=== PATIENT | male | born 1945 | race Caucasian/White ===

== ENCOUNTER → 2018-01-04 07:49 | Outpatient (CLI) | payer MEDICARE, SELFPAY ==
[2018-01-04 09:27] LABS: AST(SGOT) 29 U/L (15-37); Alanine Aminotransfer ALT/SGPT 17 U/L (16-61); Albumin, Serum 3.8 g/dL (3.2-5.0); Alkaline Phosphatase 43 U/L (45-117); Bilirubin, Direct 0.18 mg/dL (0.00-0.30); Cholesterol 173 mg/dL (200); Globulin 4.1 g/dL (2.2-4.2); High Density Lipoprotein 40 mg/dL; Protein, Total 7.9 g/dL (6.4-8.2); Triglycerides 141 mg/dL; Very Low Density Lipoprotein 28 mg/dL (5-40)
== END ==
PROVIDERS: Visit Provider Physician Assistant Medical
DX: E78.5 Hyperlipidemia, unspecified (principal); I25.10 Atherosclerotic heart disease of native coronary artery without angina pectoris; I25.5 Ischemic cardiomyopathy; I10 Essential (primary) hypertension
CPT/HCPCS: 36415; 80061; 80076

== ENCOUNTER 2018-04-25 06:27 | Emergency (ER) | payer MEDICARE, SELFPAY ==
[2018-04-25 06:28] VITALS: BP 160/82; PULSE 81; RESP 16; TEMP 36.7; O2SAT 98; BMI 28.0
--- NOTE | 2018-04-25 06:42 | EKG12_ITS ---
Test Reason : ILLNESS Blood Pressure : / mmHG Vent. Rate : 073 BPM Atrial Rate : 062 BPM P-R Int : 000 ms QRS Dur : 124 ms QT Int : 464 ms P-R-T Axes : 000 031 215 degrees QTc Int : 511 ms Atrial fibrillation with premature ventricular or aberrantly conducted complexes Non-specific intra-ventricular conduction delay ST & T wave abnormality, consider inferior ischemia ST & T wave abnormality, consider anterolateral ischemia Abnormal ECG Confirmed by IDA KEEN ([id number]), map editor JOEY MENA ([id number]) on 04/30/2018 2:33:12 PM Referred By: OLU Confirmed By:IDA KEEN
[2018-04-25] MEDS: 0.9% Normal Saline 1,000 ML 150 ML IV (06:47)
--- NOTE | 2018-04-25 06:51 | ED.DCSUM_ITS ---
- ER Visit Summary Date of Service: 04/25/18 Chief Complaint: [Back pain and leg pain] History of Present Illness: The patient is a 72 M [presents the emergency department with complaint of pain in his low back and into his legs. Patient complains of numbness, decreased sensation and weakness of his legs especially his left leg. Patient states he woke up at 5 AM to use the restroom and after urinating went back into bed. Patient had numbness and tingling to his left leg. Patient got up and went sit on the couch when he noticed that his legs felt like they were going to give out and he had sensation like his left leg had fallen asleep. Patient no longer able to walk or move his left leg. He denies any chest pain or shortness of breath. Patient at that time was having severe pain in his low back as well.] Physical Examination: [HEENT-PERRLA, EOMI. Cranial nerves II through XII grossly intact. TMs clear. Mucous membranes moist. No adenopathy. Cardiovascular-regular rate and rhythm without murmur or ectopy Lungs-clear to auscultation, chest wall stable without crepitus or subcu emphysema Abdomen-normoactive bowel sounds, soft, nontender, no rebound or rigidity, no peritoneal signs. Back exam-no significant tenderness on palpation of his lumbar spine or thoracic spine. Negative straight leg raises. Patient has deep tendon reflexes that are diminished at the left patella and Achilles compared to the right side. Extremities-intact ?4, normal range of motion, normal pulses, atraumatic]. Patient unable to lift his left leg off the bed. Patient is able to lift the right leg up off the bed. Test Results: [CTA of the abdomen was ordered stat to rule out aortic dissection. EKG and labs ordered.] Emergency Department Course and Treatment: [Care of patient turned over to morning physician awaiting lab results and CT results.] Treatment Plan: [Pending] Disposition: [Pending] Impression: [Back pain Left leg weakness] This note was generated with [employer] dictation software. It may contain incorrect words, spelling, and punctuation that were not noted in review of the chart prior to signing ED Disposition - Plan for ED Patient: Chief Complaint: Back Referrals: Care Physician,No Primary [Primary Care Provider] -
[2018-04-25 07:00] LABS: Anion Gap 11 (5-15); BUN 36 mg/dL (7-18); Chloride 111 mmol/L (98-107); Creatinine, Serum 1.89 mg/dL (0.70-1.30); EST Glomerular Filtration Rate 37 mL/min (>60); Est Glom Filt Rate - Afr Amer 45 mL/min (>60); Estimated Creatinine Clearance 32.54 ml/min; Glucose 233 mg/dL (74-106); Potassium 4.2 mmol/L (3.5-5.1); Sodium Level 146 mmol/L (136-145)
[2018-04-25 07:01] LABS: Absolute Lymphocyte Count 3.34 X10^3/ul (0.83-4.51); Absolute Neutrophil Count 4.1 X10^3/uL (2.0-7.7); Basophil# 0.02 X10^3/uL; Basophil% 0.2 % (0-1); Eosinophil# 0.26 X10^3/uL; Eosinophils% 3.2 % (0-5); Lymphocyte # 3.34 X10^3/ul (4.0); Lymphocyte % 40.6 % (19-41); Mean Corp Hgb Conc 31.8 g/gl (32-36); Mean Corpuscular Hgb 28.7 pg (27.0-32.0); Mean Corpuscular Volume 90.3 fL (80-94); Mean Platelet Vol. 11.3 fl (6.2-12.0); Monocyte# 0.51 X10^3/uL; Monocyte% 6.2 % (0-10); Neutrophil # 4.09 X10^3/uL (2.7-7.7); Neutrophil % 49.7 % (47-70); Platelet Count 160 K/mm3 (150-450); RBC Distribution Width CV 14.3 % (11.6-14.6); RBC Distribution Width SD 46.5 fl (35.1-43.9); Red Blood Count 4.87 M/mm3 (4.6-6.2); White Blood Count 8.2 K/mm3 (4.4-11.0)
[2018-04-25 07:06] LABS: International Normalized Ratio 1.1; Prothrombin Time (Protime)PT. 14.6 SECONDS (11.7-14.9)
[2018-04-25 07:07] LABS: POSITIVE COUNT NO; POSITIVE DIFFERENTIAL NO; POSITIVE MORPHOLOGY NO; Partial Thromboplast Time 26.3 Seconds (24.1-36.2)
[2018-04-25] MEDS: 0.9% Normal Saline 1,000 ML 999 ML IV (07:23)
[2018-04-25 07:32] LABS: Lactic Acid 2.4 mmol/L (0.4-2.0)
[2018-04-25] MEDS: HYDROmorphone 1 MG/ML Syringe IV (07:38)
[2018-04-25] MEDS: Heparin Injection (Vial) 5,000 UNIT/ML VIAL 4000 UNIT IV (07:49)
[2018-04-25 08:04] VITALS: BP 160/84; PULSE 78; RESP 12; O2SAT 96
[2018-04-25 10:53] LABS: Reflex Lactate? Y
== END 2018-04-25 08:06 | disposition short-term general hospital (02) ==
PROVIDERS: Emergency Provider Emergency Medicine
DX: I74.09 Other arterial embolism and thrombosis of abdominal aorta (principal); I25.10 Atherosclerotic heart disease of native coronary artery without angina pectoris; I42.9 Cardiomyopathy, unspecified; I10 Essential (primary) hypertension; E78.00 Pure hypercholesterolemia, unspecified; Z95.1 Presence of aortocoronary bypass graft; Z79.82 Long term (current) use of aspirin; Z79.899 Other long term (current) drug therapy
CPT/HCPCS: 75635; 80048; 83605; 85025; 85610; 85730; 93005; 96361; 96365; 96375; 99285; J7030; Q9967; A4216

== ENCOUNTER 2018-05-28 22:08 | Emergency (ER) | payer MEDICARE, SELFPAY ==
[2018-05-28 22:09] VITALS: BP 108/64; PULSE 64; RESP 18; TEMP 36.7; O2SAT 99; BMI 24.5
--- NOTE | 2018-05-29 00:05 | ED.VISSUMM ---
- ER Visit Summary Date of Service: 05/29/18 Chief Complaint: Rectal bleeding History of Present Illness: The patient is a 72 M sudden rectal bleeding bright red blood this evening. States dripping down his leg. 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 He was sent to [facility]. Patient states during the same time was dealing with left-sided kidney stones, has lithotripsy and left ureteral stent. Replaced Luis catheter last Sunday due to the additional procedure. States blood has been in the Luis since then. No fevers. States he is been dealing with constipation, the days of gave himself a rectal suppository, states had pain during insertion at that time. States there was no bleeding. He has not inserted anything since then. Denies lightheaded symptoms. Physical Examination: General: Alert and oriented ?3, no acute distress HEENT: Normocephalic, atraumatic. Pale conjunctiva moist mucosa membranes Neck: supple, nontender. Cardiovascular: Regular rate and rhythm, no murmurs Respiratory: Normal breath sounds, symmetric, no distress Abdomen: Soft, nontender, nondistended Rectal: No hemorrhoids. However with evaluation of the sphincter, there was clot and oozing of blood dark red blood. Extremities: Nontender, no edema, pulses intact ?4 Neuro: no focal neurological deficits. Test Results: Hemoglobin 10.8. Creatinine 2.56. INR 3.7. PTT 45.8. Type and screen: A-. Emergency Department Course and Treatment: Patient's exam concerns for active bleeding posterior aspect. With his history more concerns of his recent rectal suppository placement. He states he had significant pain when he placed this. I did send for labs and type and screen. Fluid started. His last meal was 7:30 PM. He is kept n.p.o. I discussed with on-call surgeon Dr. Simon, on holding off on anoscope at this time. He states he was evaluated in the emergency department. Patient evaluated surgery in the emergency department. Evaluated concerns for a brisk bleed due to patient's coagulopathy and recent medical history felt he needs colorectal surgery involved and needs transfer to higher level of care. Call out to [facility] discussed with transfer line multiple times, colorectal surgery was made aware along with general surgery. They request ICU acceptance. Patient accepted by store leader Dr. Fairchild to the emergency department for evaluation. Hemoglobin 10.8 at 12:20 AM. INR 3.7. Blood pressure remained stable in the ED continue IV fluids. N.p.o. was maintained. He will be transferred to the emergency department. Treatment Plan: [] Disposition: Transfer to [facility] emergency department Impression: 1. Acute rectal bleed 2. Coagulopathy 3. Acute on chronic renal insufficiency 4. Recent aortic thrombectomy This note was generated with [employer] dictation software. It may contain incorrect words, spelling, and punctuation that were not noted in review of the chart prior to signing ED Disposition - Plan for ED Patient: Disposition: [facility] Chief Complaint: GI Bleed Diagnosis: Rectal bleed, Coagulopathy, Acute kidney injury Referrals: Care Physician,No Primary [Primary Care Provider] -
--- NOTE | 2018-05-29 00:08 | ED.DCSUM_ITS ---
- ER Visit Summary Date of Service: 05/29/18 Chief Complaint: Rectal bleeding History of Present Illness: The patient is a 72 M sudden rectal bleeding bright red blood this evening. States dripping down his leg. 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 He was sent to [facility]. Patient states during the same time was dealing with left-sided kidney stones, has lithotripsy and left ureteral stent. Replaced Luis catheter last Sunday due to the additional procedure. States blood has been in the Luis since then. No fevers. States he is been dealing with constipation, the days of gave himself a rectal suppository, states had pa in during insertion at that time. States there was no bleeding. He has not inserted anything since then. Denies lightheaded symptoms. Physical Examination: General: Alert and oriented ?3, no acute distress HEENT: Normocephalic, atraumatic. Pale conjunctiva moist mucosa membranes Neck: supple, nontender. Cardiovascular: Regular rate and rhythm, no murmurs Respiratory: Normal breath sounds, symmetric, no distress Abdomen: Soft, nontender, nondistended Rectal: No hemorrhoids. However with evaluation of the sphincter, there was clot and oozing of blood dark red blood. Extremities: Nontender, no edema, pulses intact ?4 Neuro: no focal neurological deficits. Test Results: Hemoglobin 10.8. Creatinine 2.56. INR 3.7. PTT 45.8. Type and screen: A-. Emergency Department Course and Treatment: Patient's exam concerns for active bleeding posterior aspect. With his history more concerns of his recent rectal suppository placement. He states he had significant pain when he placed this. I did send for labs and type and screen. Fluid started. His last meal was 7:30 PM. He is kept n.p.o. I discussed with on-call surgeon Dr. Simon, on holding off on anoscope at this time. He states he was evaluated in the emergency department. Patient evaluated surgery in the emergency department. Evaluated concerns for a brisk bleed due to patient's coagulopathy and recent medical history felt he needs colorectal surgery involved and needs transfer to higher level of care. Call out to [facility] discussed with transfer line multiple times, colorectal surgery was made aware along with general surgery. They request ICU acceptance. Patient accepted by fence erector supervisor Dr. Fairchild to the emergency department for evaluation. Hemoglobin 10.8 at 12:20 AM. INR 3.7. Blood pressure remained stable in the ED continue IV fluids. N.p.o. was maintained. He will be transferred to the emergency department. Treatment Plan: [] Disposition: Transfer to [facility] emergency department Impression: 1. Acute rectal bleed 2. Coagulopathy 3. Acute on chronic renal insufficiency 4. Recent aortic thrombectomy This note was generated with [employer] dictation software. It may contain incorrect words, spelling, and punctuation that were not noted in review of the chart prior to signing ED Disposition - Plan for ED Patient: Disposition: [facility] Chief Complaint: GI Bleed Diagnosis: Rectal bleed, Coagulopathy, Acute kidney injury Referrals: Care Physician,No Primary [Primary Care Provider] -
[2018-05-29 00:09] VITALS: BP 90/53; PULSE 87; RESP 16; O2SAT 99
[2018-05-29] MEDS: 0.9% Normal Saline 1,000 ML 150 ML IV ×2 (00:22→02:58)
[2018-05-29 00:32] LABS: Absolute Lymphocyte Count 1.72 X10^3/ul (0.83-4.51); Absolute Neutrophil Count 3.9 X10^3/uL (2.0-7.7); Basophil# 0.02 X10^3/uL; Basophil% 0.3 % (0-1); Eosinophil# 0.22 X10^3/uL; Eosinophils% 3.4 % (0-5); Hematocrit 34.5 % (40-54); Hemoglobin 10.8 g/dl (13.0-16.5); Lymphocyte # 1.72 X10^3/ul (4.0); Lymphocyte % 26.7 % (19-41); Mean Corp Hgb Conc 31.3 g/gl (32-36); Mean Corpuscular Hgb 28.1 pg (27.0-32.0); Mean Corpuscular Volume 89.6 fL (80-94); Monocyte% 9.3 % (0-10); Neutrophil # 3.88 X10^3/uL (2.7-7.7); Neutrophil % 60.1 % (47-70); Platelet Count 194 K/mm3 (150-450); RBC Distribution Width CV 14.1 % (11.6-14.6); RBC Distribution Width SD 46.3 fl (35.1-43.9); Red Blood Count 3.85 M/mm3 (4.6-6.2); White Blood Count 6.5 K/mm3 (4.4-11.0)
[2018-05-29 00:36] LABS: POSITIVE COUNT NO; POSITIVE DIFFERENTIAL NO; POSITIVE MORPHOLOGY NO
[2018-05-29 00:48] LABS: Partial Thromboplast Time 45.8 Seconds (24.1-36.2); Prothrombin Time (Protime)PT. 36.6 SECONDS (11.7-14.9)
[2018-05-29 00:49] VITALS: BP 100/63; BP 66/58; PULSE 79; PULSE 83; RESP 16; RESP 20; O2SAT 100; O2SAT 99
[2018-05-29 00:50] LABS: Anion Gap 7 (5-15); BUN 58 mg/dL (7-18); BUN/Creat Ratio 22.7 RATIO (10-20); Calcium,Total 9.2 mg/dL (8.5-10.1); Chloride 103 mmol/L (98-107); Creatinine, Serum 2.56 mg/dL (0.70-1.30); EST Glomerular Filtration Rate 26 mL/min (>60); Est Glom Filt Rate - Afr Amer 32 mL/min (>60); Estimated Creatinine Clearance 24.03 ml/min; Glucose 125 mg/dL (74-106); International Normalized Ratio 3.7; Potassium 4.7 mmol/L (3.5-5.1); Sodium Level 138 mmol/L (136-145)
--- NOTE | 2018-05-29 00:53 | ED.RN ---
AWARE OF PT'S CURRENT BLOOD PRESSURES AND DR. JOSEPH AT BEDSIDE. PT HAS TINSLEY CATHETER DRAINING DARK RED URINE.
--- NOTE | 2018-05-29 01:15 | PCM.CONS.GEN ---
Problem List (1) GI bleed Status: Acute Qualifiers: GI bleed type/associated pathology: anorectal hemorrhage Qualified Code(s): K62.5 - Hemorrhage of anus and rectum Reason for Consult Date of Consultation: 05/29/18 Reason for Consultation: GI bleeding History of Present Illness: The patient is a 72 year old M who began to have bright red bleeding this evening. The patient reports that he was recently admitted to [facility] and had bilateral groin incisions for a aortic thrombectomy. He was placed on Xarelto at that time. He also underwent ureteral stone removal with stent placement and an indwelling Luis catheter. The patient reports he has not had a bowel movement in several days. He is having bleeding from his rectum which is bright red and copious. The patient reports that he is having pain with passing gas and he did try to place a suppository a few days ago. The blood only started tonight however. The patient reports he is never had a colonoscopy. He is not having any abdominal pain or nausea or vomiting. Past Medical History Past Medical History (Chronic Problems): Chronic Problems (Last Reviewed 02/05/18 @ 13:20 by Kanchan Gilbert) Hyperlipidemia (Chronic) Hypertension (Chronic) CAD (coronary artery disease) (Chronic) Atherosclerosis of coronary artery of hoh heart without angina pectoris (Chronic) S/P CABG in 2006 within [facility] to LAD, SVG to right PDA, and SVG to ramus intermedius; Arteriosclerosis of arterial coronary artery bypass graft (Chronic) S/P CABG in 2006 within [facility] to LAD, SVG to right PDA, and SVG to ramus intermedius; Ischemic cardiomyopathy (Chronic) Paroxysmal ventricular tachycardia (Chronic) Chronic systolic (congestive) heart failure (Chronic) Aortocoronary bypass status (Chronic) 10/24/06 CABG X 3 [place] to LAD, SVG to Rt PDA, SVG to Ramus Intermedius; Encounter for long-term current use of high risk medication (Chronic) Cardiac murmur (Chronic) Mitral valve disorder (Chronic) Left carotid bruit (Chronic) Medical History: Medical History (Last Reviewed 02/05/18 @ 13:20 by Kanchan Gilbert) Hyperlipidemia (Chronic) E78.5 Hypertension (Chronic) I10 CAD (coronary artery disease) (Chronic) I25.10 Atherosclerosis of coronary artery of hoh heart without angina pectoris (Chronic) I25.10 S/P CABG in 2006 within [facility] to LAD, SVG to right PDA, and SVG to ramus intermedius; Arteriosclerosis of arterial coronary artery bypass graft (Chronic) I25.810 S/P CABG in 2006 within [facility] to LAD, SVG to right PDA, and SVG to ramus intermedius; Ischemic cardiomyopathy (Chronic) I25.5 Paroxysmal ventricular tachycardia (Chronic) I47.2 Chronic systolic (congestive) heart failure (Chronic) I50.22 Encounter for long-term current use of high risk medication (Chronic) Z79.899 Cardiac murmur (Chronic) R01.1 Mitral valve disorder (Chronic) I05.9 Left carotid bruit (Chronic) R09.89 Dyspnea R06.00 Allergies cortisone Adverse Reaction (Severe, Verified 05/28/18 22:11) Facial swelling Home Medications: Ambulatory Orders Medication Instructions Recorded cholecalciferol (vitamin D3) 1,000 1,000 unit PO QDAY 02/01/18 unit tablet docusate sodium 100 mg capsule 100 mg PO .As needed cap 02/01/18 nitroglycerin 0.4 mg sublingual 0.4 mg SUBLINGUAL Q5M PRN 02/01/18 tablet carvedilol 25 mg tablet 25 mg PO BID #180 tab 02/05/18 fenofibrate micronized 200 mg 200 mg PO QDAY #90 cap 02/05/18 capsule furosemide 40 mg tablet 40 mg PO QDAY #90 tab 02/05/18 lisinopril 20 mg tablet 20 mg PO BID #180 tab 02/05/18 omega-3 fatty acids 1,000 mg 1,000 mg PO QDAY 02/05/18 capsule potassium chloride ER 20 mEq 20 meq PO QDAY #90 tab 02/05/18 tablet,extended release(part/cryst) rosuvastatin 40 mg tablet 40 mg PO QDAY #90 tab 02/05/18 Rivaroxaban [Xarelto] 20 mg PO DAILY 05/29/18 Tamsulosin HCl [Flomax] 0.4 mg PO DAILY 05/29/18 Surgical History: Surgical History (Last Reviewed 02/05/18 @ 13:26 by Kanchan Gilbert) Aortocoronary bypass status (Chronic) Z95.1 10/24/06 CABG X 3 [place] to LAD, SVG to Rt PDA, SVG to Ramus Intermedius; Surgical History: - - Ureteral stone removal and stent placement, aortic thrombectomy Smoking Status: Former smoker - *Family History Maternal Family History: Family History (Last Updated 02/05/18 @ 13:27 by Kanchan Gilbert) Father Myocardial infarction Heart disease Brother CAD (coronary artery disease) Brother Myocardial infarction Brother Heart disease Other Hypertension Review of Systems Constitutional: Denies: Anorexia, Fever HEENT: Denies: Difficulty Hearing Cardiovascular: Denies: Chest Pain Respiratory: Denies: Cough, Shortness of Breath Gastrointestinal: Reports: Constipation, Hematochezia. Denies: Abdominal Pain, Hematemesis, Nausea, Vomiting Genitourinary: Reports: - - Luis Musculoskeletal: Reports: - - Chronic left leg wound Skin: Denies: Jaundice Neurological: Denies: Balance problems Hematologic/ Lymphatic: Denies: Adenopathy Patient Problems: Active and Suspected Problems (Last Reviewed 02/05/18 @ 13:20 by Kanchan Gilbert) GI bleed (Acute) - Physical Exam General: Alert, Oriented x3 HEENT: Atraumatic Neck: No JVD Lungs: Normal air movement Cardiovascular: Regular rate, Regular Rhythm Abdomen: Soft, Non Tender, Non-Distended, - - On rectal exam the patient is having copious bright red blood per rectum. No signs of trauma on external rectal exam. No hemorrhoids. Extremities: No clubbing Skin: No rashes Musculoskeletal: No Tenderness to Palpation of Joints or Extremities, No Muscle Wasting, - - And has a left lower extremity calf wound Neurological: Cranial nerves II-XII grossly intact Psych/Mental Status: Normal Affect Vital Signs Temp Pulse Resp BP Pulse Ox 98.0 F 83 16 100/63 100 05/28/18 22:09 05/29/18 00:49 05/29/18 00:49 05/29/18 00:49 05/29/18 00:49 Oxygen Delivery Method Room Air Weight: 157 lb Body Mass Index (BMI) 24.5 Laboratory Tests Past 24 Hrs 05/29/18 05/29/18 05/29/18 00:20 00:20 00:20 WBC 6.5 RBC 3.85 L Hgb 10.8 L Hct 34.5 L MCV 89.6 MCH 28.1 MCHC 31.3 L RDW 14.1 RDW Differential 46.3 H Plt Count 194 MPV 10.0 Immature Gran % (Auto) 0.200 Neut % (Auto) 60.1 Lymph % (Auto) 26.7 Mills % (Auto) 9.3 Eos % (Auto) 3.4 Baso % (Auto) 0.3 Absolute Neuts (auto) 3.9 Absolute Lymphs (auto) 1.72 Total Counted Not Reportable PT 36.6 H INR 3.7 H* APTT 45.8 H Sodium 138 Potassium 4.7 Chloride 103 Carbon Dioxide 28.0 Anion Gap 7 BUN 58 H Creatinine 2.56 H Estim Creat Clear Calc 24.03 Est GFR (MDRD) Af Amer 32 L Est GFR (MDRD) Non-Af 26 L BUN/Creatinine Ratio 22.7 H Glucose 125 H Calcium 9.2 Blood Type Antibody Screen 05/29/18 00:20 WBC RBC Hgb Hct MCV MCH MCHC RDW RDW Differential Plt Count MPV Immature Gran % (Auto) Neut % (Auto) Lymph % (Auto) Mills % (Auto) Eos % (Auto) Baso % (Auto) Absolute Neuts (auto) Absolute Lymphs (auto) Total Counted PT INR APTT Sodium Potassium Chloride Carbon Dioxide Anion Gap BUN Creatinine Estim Creat Clear Calc Est GFR (MDRD) Af Amer Est GFR (MDRD) Non-Af BUN/Creatinine Ratio Glucose Calcium Blood Type Pending Antibody Screen Pending Assessment/Plan All Active Problems (Last Reviewed 02/05/18 @ 13:20 by Kanchan Gilbert) GI bleed (Acute) 72-year-old male with GI bleed 1. The patient is having copious bright red blood per rectum. The patient has an INR over 3 and is on Xarelto. I am unsure of the patient's surgical history and I am unsure if he is able to come off of his Xarelto. I would recommend transfer back to [facility] for management of his GI bleed as it is very brisk and probably beyond my scope. Patient needs a GI consult as well as possible colorectal surgery. Unsure if the bleed is diverticular in nature versus polyp versus trauma to the rectum from suppository placement. In any way the patient would likely need to come off of his blood thinners and may require transfusion. I recommend transfer back to [facility] as the patient has had all of his recent care in the last month there and all of his physicians are there as well. Sherwin Simon MD Pager: [facility] [address] [place] [address], [address] [place] [address] Office:
[2018-05-29 01:19] VITALS: BP 116/55; PULSE 80; RESP 16; O2SAT 100
--- NOTE | 2018-05-29 01:20 | CON.PCM_ITS ---
Problem List (1) GI bleed Status: Acute Qualifiers: GI bleed type/associated pathology: anorectal hemorrhage Qualified Code(s): K62.5 - Hemorrhage of anus and rectum Reason for Consult Date of Consultation: 05/29/18 Reason for Consultation: GI bleeding History of Present Illness: The patient is a 72 year old M who began to have bright red bleeding this evening. The patient reports that he was recently admitted to [facility] and had bilateral groin incisions for a aortic thrombectomy. He was placed on Xarelto at that time. He also underwent ureteral stone removal with stent placement and an indwelling Luis catheter. The patient reports he has not had a bowel movement in several days. He is having bleeding from his rectum which is bright red and copious. The patient reports that he is having pain with passing gas and he did try to place a suppository a few days ago. The blood only started tonight however. The patient reports he is never had a colonoscopy. He is not having any abdominal pain or nausea or vomiting. Past Medical History Past Medical History (Chronic Problems): Chronic Problems (Last Reviewed 02/05/18 @ 13:20 by Kanchan Gilbert) Hyperlipidemia (Chronic) Hypertension (Chronic) CAD (coronary artery disease) (Chronic) Atherosclerosis of coronary artery of [place] without angina pectoris (Chronic) S/P CABG in 2006 within [facility] to LAD, SVG to right PDA, and SVG to ramus intermedius; Arteriosclerosis of arterial coronary artery bypass graft (Chronic) S/P CABG in 2006 within [facility] to LAD, SVG to right PDA, and SVG to ramus intermedius; Ischemic cardiomyopathy (Chronic) Paroxysmal ventricular tachycardia (Chronic) Chronic systolic (congestive) heart failure (Chronic) Aortocoronary bypass status (Chronic) 10/24/06 CABG X 3 [facility] to LAD, SVG to Rt PDA, SVG to Ramus Intermedius; Encounter for long-term current use of high risk medication (Chronic) Cardiac murmur (Chronic) Mitral valve disorder (Chronic) Left carotid bruit (Chronic) Medical History: Medical History (Last Reviewed 02/05/18 @ 13:20 by Kanchan Gilbert) Hyperlipidemia (Chronic) E78.5 Hypertension (Chronic) I10 CAD (coronary artery disease) (Chronic) I25.10 Atherosclerosis of coronary artery of [place] without angina pectoris (Chronic) I25.10 S/P CABG in 2006 within [facility] to LAD, SVG to right PDA, and SVG to ramus intermedius; Arteriosclerosis of arterial coronary artery bypass graft (Chronic) I25.810 S/P CABG in 2006 within [facility] to LAD, SVG to right PDA, and SVG to ramus intermedius; Ischemic cardiomyopathy (Chronic) I25.5 Paroxysmal ventricular tachycardia (Chronic) I47.2 Chronic systolic (congestive) heart failure (Chronic) I50.22 Encounter for long-term current use of high risk medication (Chronic) Z79.899 Cardiac murmur (Chronic) R01.1 Mitral valve disorder (Chronic) I05.9 Left carotid bruit (Chronic) R09.89 Dyspnea R06.00 Allergies cortisone Adverse Reaction (Severe, Verified 05/28/18 22:11) Facial swelling Home Medications: Ambulatory Orders Medication Instructions Recorded cholecalciferol (vitamin D3) 1,000 1,000 unit PO QDAY 02/01/18 unit tablet docusate sodium 100 mg capsule 100 mg PO .As needed cap 02/01/18 nitroglycerin 0.4 mg sublingual 0.4 mg SUBLINGUAL Q5M PRN 02/01/18 tablet carvedilol 25 mg tablet 25 mg PO BID #180 tab 02/05/18 fenofibrate micronized 200 mg 200 mg PO QDAY #90 cap 02/05/18 capsule furosemide 40 mg tablet 40 mg PO QDAY #90 tab 02/05/18 lisinopril 20 mg tablet 20 mg PO BID #180 tab 02/05/18 omega-3 fatty acids 1,000 mg 1,000 mg PO QDAY 02/05/18 capsule potassium chloride ER 20 mEq 20 meq PO QDAY #90 tab 02/05/18 tablet,extended release(part/cryst) rosuvastatin 40 mg tablet 40 mg PO QDAY #90 tab 02/05/18 Rivaroxaban [Xarelto] 20 mg PO DAILY 05/29/18 Tamsulosin HCl [Flomax] 0.4 mg PO DAILY 05/29/18 Surgical History: Surgical History (Last Reviewed 02/05/18 @ 13:26 by Kanchan Gilbert) Aortocoronary bypass status (Chronic) Z95.1 10/24/06 CABG X 3 [facility] to LAD, SVG to Rt PDA, SVG to Ramus Intermedius; Surgical History: - - Ureteral stone removal and stent placement, aortic thrombectomy Smoking Status: Former smoker - *Family History Maternal Family History: Family History (Last Updated 02/05/18 @ 13:27 by Kanchan Gilbert) Father Myocardial infarction Heart disease Brother CAD (coronary artery disease) Brother Myocardial infarction Brother Heart disease Other Hypertension Review of Systems Constitutional: Denies: Anorexia, Fever HEENT: Denies: Difficulty Hearing Cardiovascular: Denies: Chest Pain Respiratory: Denies: Cough, Shortness of Breath Gastrointestinal: Reports: Constipation, Hematochezia. Denies: Abdominal Pain, Hematemesis, Nausea, Vomiting Genitourinary: Reports: - - Luis Musculoskeletal: Reports: - - Chronic left leg wound Skin: Denies: Jaundice Neurological: Denies: Balance problems Hematologic/ Lymphatic: Denies: Adenopathy Patient Problems: Active and Suspected Problems (Last Reviewed 02/05/18 @ 13:20 by Kanchan Gilbert) GI bleed (Acute) - Physical Exam General: Alert, Oriented x3 HEENT: Atraumatic Neck: No JVD Lungs: Normal air movement Cardiovascular: Regular rate, Regular Rhythm Abdomen: Soft, Non Tender, Non-Distended, - - On rectal exam the patient is having copious bright red blood per rectum. No signs of trauma on external rectal exam. No hemorrhoids. Extremities: No clubbing Skin: No rashes Musculoskeletal: No Tenderness to Palpation of Joints or Extremities, No Muscle Wasting, - - And has a left lower extremity calf wound Neurological: Cranial nerves II-XII grossly intact Psych/Mental Status: Normal Affect Vital Signs Temp Pulse Resp BP Pulse Ox 98.0 F 83 16 100/63 100 05/28/18 22:09 05/29/18 00:49 05/29/18 00:49 05/29/18 00:49 05/29/18 00:49 Oxygen Delivery Method Room Air Weight: 157 lb Body Mass Index (BMI) 24.5 Laboratory Tests Past 24 Hrs 05/29/18 05/29/18 05/29/18 00:20 00:20 00:20 WBC 6.5 RBC 3.85 L Hgb 10.8 L Hct 34.5 L MCV 89.6 MCH 28.1 MCHC 31.3 L RDW 14.1 RDW Differential 46.3 H Plt Count 194 MPV 10.0 Immature Gran % (Auto) 0.200 Neut % (Auto) 60.1 Lymph % (Auto) 26.7 [place] % (Auto) 9.3 Eos % (Auto) 3.4 Baso % (Auto) 0.3 Absolute Neuts (auto) 3.9 Absolute Lymphs (auto) 1.72 Total Counted Not Reportable PT 36.6 H INR 3.7 H* APTT 45.8 H Sodium 138 Potassium 4.7 Chloride 103 Carbon Dioxide 28.0 Anion Gap 7 BUN 58 H Creatinine 2.56 H Estim Creat Clear Calc 24.03 Est GFR (MDRD) Af Amer 32 L Est GFR (MDRD) Non-Af 26 L BUN/Creatinine Ratio 22.7 H Glucose 125 H Calcium 9.2 Blood Type Antibody Screen 05/29/18 00:20 WBC RBC Hgb Hct MCV MCH MCHC RDW RDW Differential Plt Count MPV Immature Gran % (Auto) Neut % (Auto) Lymph % (Auto) [place] % (Auto) Eos % (Auto) Baso % (Auto) Absolute Neuts (auto) Absolute Lymphs (auto) Total Counted PT INR APTT Sodium Potassium Chloride Carbon Dioxide Anion Gap BUN Creatinine Estim Creat Clear Calc Est GFR (MDRD) Af Amer Est GFR (MDRD) Non-Af BUN/Creatinine Ratio Glucose Calcium Blood Type Pending Antibody Screen Pending Assessment/Plan All Active Problems (Last Reviewed 02/05/18 @ 13:20 by Kanchan Gilbert) GI bleed (Acute) 72-year-old male with GI bleed 1. The patient is having copious bright red blood per rectum. The patient has an INR over 3 and is on Xarelto. I am unsure of the patient's surgical history and I am unsure if he is able to come off of his Xarelto. I would recommend transfer back to [facility] for management of his GI bleed as it is very brisk and probably beyond my scope. Patient needs a GI consult as well as possible colorectal surgery. Unsure if the bleed is diverticular in nature versus polyp versus trauma to the rectum from suppository placement. In any way the patient would likely need to come off of his blood thinners and may require transfusion. I recommend transfer back to [facility] as the patient has had all of his recent care in the last month there and all of his physicians are there as well. Sherwin Simon MD Pager: [facility] [address] [place] [address], [address] [place] [address] Office:
[2018-05-29 01:59] VITALS: BP 122/65; PULSE 93; RESP 15; O2SAT 99
[2018-05-29 02:59] VITALS: BP 119/60; PULSE 90; RESP 14; TEMP 36.6; O2SAT 100
--- NOTE | 2018-05-29 03:26 | ED.RN ---
PATIENT BED CLEANED AT THIS TIME. PATIENT HAD MODERATE AMOUNT OF BLOODY STOOL NOTED. BED LINEN CHANGED AT THIS TIME
== END 2018-05-29 03:26 | disposition short-term general hospital (02) ==
PROVIDERS: Emergency Provider Emergency Medicine
DX: K62.5 Hemorrhage of anus and rectum (principal); D68.9 Coagulation defect, unspecified; I12.9 Hypertensive chronic kidney disease with stage 1 through stage 4 chronic kidney disease, or unspecified chronic kidney disease; N18.9 Chronic kidney disease, unspecified; R31.9 Hematuria, unspecified; K59.00 Constipation, unspecified; I25.10 Atherosclerotic heart disease of native coronary artery without angina pectoris; I25.2 Old myocardial infarction; E78.00 Pure hypercholesterolemia, unspecified; Z95.1 Presence of aortocoronary bypass graft
CPT/HCPCS: 46600; 80048; 85025; 85610; 85730; 86850; 86900; 96360; 96361; 99284; J7030

== ENCOUNTER → 2022-03-10 | Outpatient (CLI) | payer MEDICARE, SELFPAY ==
[2022-03-10 12:28] LABS: Absolute Lymphocyte Count 1.69 X10^3/uL (0.83-4.51); Absolute Neutrophil Count 4.2 X10^3/uL (2.0-7.7); Basophil# 0.03 X10^3/uL; Basophil% 0.5 % (0-1); Eosinophil# 0.06 X10^3/uL; Eosinophils% 0.9 % (0-5); Hematocrit 51.9 % (40-54); Hemoglobin 16.2 g/dL (13.0-16.5); Lymphocyte # 1.69 X10^3/ul (0.83-4.51); Lymphocyte % 26.1 % (19-41); Mean Corp Hgb Conc 31.2 g/dL (32-36); Mean Corpuscular Hgb 29.7 pg (27.0-32.0); Mean Corpuscular Volume 95.1 fL (80-94); Mean Platelet Vol. 12.6 fl (6.2-12.0); Monocyte% 7.7 % (0-10); NRBC Flagged by Analyzer 0 % (0-5); Neutrophil # 4.19 X10^3/uL (2.7-7.7); Neutrophil % 64.6 % (47-70); Platelet Count 141 K/mm3 (150-450); RBC Distribution Width SD 55.6 fl (35.1-43.9); Red Blood Count 5.46 M/mm3 (4.6-6.2); White Blood Count 6.5 K/mm3 (4.4-11.0)
[2022-03-10 12:37] LABS: ALB/GLOB Ratio 0.8 RATIO (0.9-2.4); AST(SGOT) 43 U/L (15-37); Alanine Aminotransfer ALT/SGPT 33 U/L (16-61); Albumin, Serum 3.1 g/dL (3.2-5.0); Alkaline Phosphatase 50 U/L (45-117); Anion Gap 7 (5-15); BUN 40 mg/dL (7-18); BUN/Creat Ratio 15.2 RATIO (10-20); Chloride 107 mmol/L (98-107); Cholesterol 90 mg/dL (200); Creatinine, Serum 2.63 mg/dL (0.70-1.30); EST Glomerular Filtration Rate 25 mL/min (>60); Est Glom Filt Rate - Afr Amer 31 mL/min (>60); Globulin 4.1 g/dL (2.2-4.2); Glucose 156 mg/dL (74-106); High Density Lipoprotein 18 mg/dL; PSA,Total- Diagnostic 4.89 ng/mL (0.0-4.0); Potassium 4.8 mmol/L (3.5-5.1); Protein, Total 7.2 g/dL (6.4-8.2); Sodium Level 142 mmol/L (136-145); Triglycerides 91 mg/dL; Very Low Density Lipoprotein 18 mg/dL (5-40)
[2022-03-10 12:51] LABS: Hemoglobin A1c 7.1 % (3.8-5.6)
== END | disposition home or self-care (01) ==
PROVIDERS: PCP Internal Medicine; Referring Provider Internal Medicine; Visit Provider Internal Medicine
DX: N40.0 Benign prostatic hyperplasia without lower urinary tract symptoms (principal); I50.22 Chronic systolic (congestive) heart failure; I25.10 Atherosclerotic heart disease of native coronary artery without angina pectoris; Z79.899 Other long term (current) drug therapy; I10 Essential (primary) hypertension; R73.09 Other abnormal glucose
CPT/HCPCS: 36415; 80053; 80061; 83036; 84153; 85025

== ENCOUNTER → 2022-04-17 | Outpatient (CLI) | payer MEDICARE, SELFPAY ==
[2022-04-17 12:46] LABS: PSA,Total- Diagnostic 2.97 ng/mL (0.0-4.0)
== END | disposition home or self-care (01) ==
LOC: BIMLAB 09:40
PROVIDERS: PCP Internal Medicine; Referring Provider Internal Medicine; Visit Provider Internal Medicine
DX: R97.20 Elevated prostate specific antigen [PSA] (principal)
CPT/HCPCS: 36415; 84153

== ENCOUNTER → 2022-04-26 | Outpatient (CLI) | payer MEDICARE, SELFPAY ==
--- NOTE | 2022-04-26 09:34 | ART_ITS ---
Reason For Study: decreased capillary refill, CAD, prior embolectomy Procedure A bilateral lower extremity continuous wave Doppler with analog waveform analysis and ankle brachial indexes. Left Segmental Pressures Left brachial= 124mmHg. Left posterior tibial artery = 138mmHg. Left dorsalis pedis artery = 108mmHg. The left posterior tibial artery waveforms are triphasic. The left dorsalis pedis waveforms are biphasic. Right Segmental Pressures Right brachial= 115mmHg. Right posterior tibial artery = 160mmHg. Right dorsalis pedis artery = 142mmHg. The right posterior tibial artery waveforms are triphasic. The right dorsalis pedis waveforms are biphasic. Indices The right resting ankle brachial index is 1.29. The right ankle brachial index by the posterior tibial artery is 1.29. The right ankle brachial index by the dorsalis pedis is 1.15. The left resting ankle brachial index is 1.11. The left ankle brachial index by the posterior tibial artery is 1.11. The left ankle brachial index by the dorsalis pedis is 0.87. VL/Ankle Brachial Index Interpretation Summary Right CHRISTIANO 1.29, normal. Doppler/PVR waveforms of the right leg normal at rest. Left CHRISTIANO 1.11, normal. Doppler/PVR waveforms of the left leg normal at rest. Ordering Physician: Hallie Weinberg Referring Physician: Hallie Weinberg Performed By: Padmini Shelby, RDCS, RVT
== END | disposition home or self-care (01) ==
LOC: CVS 09:33
PROVIDERS: PCP Internal Medicine; Referring Provider Internal Medicine; Visit Provider Internal Medicine
DX: R09.89 Other specified symptoms and signs involving the circulatory and respiratory systems (principal); I25.10 Atherosclerotic heart disease of native coronary artery without angina pectoris
CPT/HCPCS: 93922

== ENCOUNTER → 2022-11-08 | Outpatient (CLI) | payer MEDICARE, SELFPAY ==
[2022-11-08 09:22] VITALS: BP 102/54; PULSE 112; RESP 16; TEMP 36.2; O2SAT 100; BMI 25.4
[2022-11-08] MEDS: 0.9% NaCl IVPB Med Flush (250 mL) 15 ML IV (09:29)
[2022-11-08 11:01] VITALS: BP 104/58; PULSE 97; RESP 18; TEMP 35.8; O2SAT 100
== END | disposition home or self-care (01) ==
LOC: MEDOUTP 09:06
PROVIDERS: PCP Internal Medicine; Referring Provider Internal Medicine Infectious Disease; Visit Provider Internal Medicine Infectious Disease
DX: N41.2 Abscess of prostate (principal)
CPT/HCPCS: 96365; J7050; A4216

== ENCOUNTER 2022-11-09 08:55 | Outpatient (CLI) | payer MEDICARE, SELFPAY ==
[2022-11-09] MEDS: 0.9% NaCl IVPB Med Flush (250 mL) 15 ML IV (09:19)
[2022-11-09 09:21] VITALS: BP 123/55; PULSE 89; RESP 16; TEMP 36.3; O2SAT 99
[2022-11-09 10:41] VITALS: BP 130/41; PULSE 89; RESP 16; TEMP 36.4; O2SAT 98
== END 2022-11-09 23:59 | disposition home or self-care (01) ==
LOC: MEDOUTP 08:56
PROVIDERS: PCP Internal Medicine; Referring Provider Internal Medicine Infectious Disease; Visit Provider Internal Medicine Infectious Disease
DX: A41.9 Sepsis, unspecified organism (principal); N41.2 Abscess of prostate
CPT/HCPCS: 96365; J7050; A4216

== ENCOUNTER → 2022-11-10 | Outpatient (CLI) | payer MEDICARE, SELFPAY ==
[2022-11-10] MEDS: 0.9% NaCl IVPB Med Flush (250 mL) 15 ML IV (09:06)
[2022-11-10 09:14] VITALS: BP 117/53; PULSE 95; RESP 16; TEMP 36.4; O2SAT 100
[2022-11-10 10:36] VITALS: BP 115/47; PULSE 79; RESP 16
== END | disposition home or self-care (01) ==
LOC: MEDOUTP 09:00
PROVIDERS: PCP Internal Medicine; Referring Provider Internal Medicine Infectious Disease; Visit Provider Internal Medicine Infectious Disease
DX: N41.2 Abscess of prostate (principal); B96.89 Other specified bacterial agents as the cause of diseases classified elsewhere
CPT/HCPCS: 96365; J7050; A4216

== ENCOUNTER 2022-11-11 08:59 | Outpatient (CLI) | payer MEDICARE, SELFPAY ==
[2022-11-11 09:20] VITALS: BP 101/58; PULSE 93; RESP 18; TEMP 36.9; O2SAT 100
[2022-11-11] MEDS: 0.9% NaCl IVPB Med Flush (250 mL) 15 ML IV (09:59)
[2022-11-11 11:00] VITALS: BP 111/57; PULSE 100; RESP 18; TEMP 36.5; O2SAT 97
== END 2022-11-11 11:08 | disposition home or self-care (01) ==
LOC: MS3OUT 09:02 → MS3 09:28
PROVIDERS: PCP Internal Medicine; Referring Provider Internal Medicine Infectious Disease; Visit Provider Internal Medicine Infectious Disease
DX: N41.2 Abscess of prostate (principal)
CPT/HCPCS: 96365; J7050; A4216

== ENCOUNTER 2022-11-12 09:05 | Outpatient (CLI) | payer MEDICARE, SELFPAY ==
[2022-11-12 09:09] VITALS: BP 106/60; PULSE 94; RESP 18; TEMP 36.6; O2SAT 96
[2022-11-12] MEDS: 0.9% NaCl IVPB Med Flush (250 mL) 15 ML IV (09:11)
[2022-11-12 10:46] VITALS: BP 110/59; PULSE 94; RESP 18; TEMP 36.3; O2SAT 98
== END 2022-11-12 10:49 | disposition home or self-care (01) ==
LOC: MEDOUTP 09:05 → MS3 09:06
PROVIDERS: PCP Internal Medicine; Referring Provider Internal Medicine Infectious Disease; Visit Provider Internal Medicine Infectious Disease
DX: N41.2 Abscess of prostate (principal); B96.89 Other specified bacterial agents as the cause of diseases classified elsewhere
CPT/HCPCS: 96365; 96366; J7050; A4216

== ENCOUNTER → 2022-11-13 | Outpatient (CLI) | payer MEDICARE, SELFPAY ==
[2022-11-13] MEDS: 0.9% NaCl IVPB Med Flush (250 mL) 15 ML IV (09:01)
[2022-11-13 09:08] VITALS: BP 111/57; PULSE 94; RESP 16; TEMP 36.3; O2SAT 98; BMI 25.4
[2022-11-13 09:17] LABS: Absolute Lymphocyte Count 1.19 X10^3/uL (0.83-4.51); Absolute Neutrophil Count 2.2 X10^3/uL (2.0-7.7); Basophil# 0.02 X10^3/uL; Basophil% 0.5 % (0-1); Eosinophil# 0.03 X10^3/uL; Eosinophils% 0.8 % (0-5); Hemoglobin 8.6 g/dL (13.0-16.5); Lymphocyte # 1.19 X10^3/ul (0.83-4.51); Lymphocyte % 32.2 % (19-41); Mean Corp Hgb Conc 30.7 g/dL (32-36); Mean Corpuscular Hgb 28.2 pg (27.0-32.0); Mean Corpuscular Volume 91.8 fL (80-94); Mean Platelet Vol. 10.5 fl (6.2-12.0); Monocyte# 0.21 X10^3/uL; Monocyte% 5.7 % (0-10); NRBC Flagged by Analyzer 0 % (0-5); Neutrophil # 2.24 X10^3/uL (2.7-7.7); Neutrophil % 60.5 % (47-70); POSITIVE MORPHOLOGY YES; Platelet Count 164 K/mm3 (150-450); RBC Distribution Width CV 16.5 % (11.6-14.6); RBC Distribution Width SD 54.9 fl (35.1-43.9); Red Blood Count 3.05 M/mm3 (4.6-6.2); White Blood Count 3.7 K/mm3 (4.4-11.0)
[2022-11-13 09:20] LABS: Differential Indicated SCAN CRITERIA MET
[2022-11-13 09:39] LABS: Differential Comment SCANNED; Reactive Lymphocyte 1+
[2022-11-13 09:41] LABS: ALB/GLOB Ratio 0.5 RATIO (0.9-2.4); AST(SGOT) 51 U/L (15-37); Alanine Aminotransfer ALT/SGPT 22 U/L (16-61); Alkaline Phosphatase 123 U/L (45-117); Anion Gap 6 (5-15); BUN 23 mg/dL (7-18); BUN/Creat Ratio 11.9 RATIO (10-20); Calcium,Total 7.7 mg/dL (8.5-10.1); Chloride 106 mmol/L (98-107); Creatinine, Serum 1.94 mg/dL (0.70-1.30); EST Glomerular Filtration Rate 36 mL/min (>60); Est Glom Filt Rate - Afr Amer 43 mL/min (>60); Estimated Creatinine Clearance 30.36 ml/min; Globulin 3.7 g/dL (2.2-4.2); Glucose 103 mg/dL (74-106); Potassium 2.8 mmol/L (3.5-5.1); Protein, Total 5.7 g/dL (6.4-8.2); Sodium Level 143 mmol/L (136-145)
[2022-11-13 10:30] VITALS: BP 120/62; PULSE 83; RESP 14; TEMP 36.1; O2SAT 99
[2022-11-13 10:38] LABS: Vancomycin, Trough Level 29.3 ug/mL (5.0-15.0)
== END | disposition home or self-care (01) ==
PROVIDERS: PCP Internal Medicine; Referring Provider Internal Medicine Infectious Disease; Visit Provider Internal Medicine Infectious Disease
DX: N41.2 Abscess of prostate (principal)
CPT/HCPCS: 96365; 80053; 80202; 85025; J7050; A4216

== ENCOUNTER → 2022-11-15 | Outpatient (CLI) | payer MEDICARE, SELFPAY ==
[2022-11-15] MEDS: 0.9% NaCl IVPB Med Flush (250 mL) 15 ML IV (08:51)
[2022-11-15 09:00] VITALS: BP 101/73; PULSE 96; RESP 16; TEMP 36.1; O2SAT 98; BMI 25.5
[2022-11-15 10:19] VITALS: BP 124/62; PULSE 105
== END | disposition home or self-care (01) ==
LOC: MEDOUTP 08:42
PROVIDERS: PCP Internal Medicine; Referring Provider Internal Medicine Infectious Disease; Visit Provider Internal Medicine Infectious Disease
DX: N41.2 Abscess of prostate (principal)
CPT/HCPCS: 96365; J7050; A4216

== ENCOUNTER → 2022-11-17 | Outpatient (CLI) | payer MEDICARE, SELFPAY ==
[2022-11-17] MEDS: 0.9% NaCl IVPB Med Flush (250 mL) 15 ML IV (08:59)
[2022-11-17 09:03] VITALS: BP 90/54; PULSE 72; RESP 16; O2SAT 100
[2022-11-17 09:39] LABS: Anion Gap 4 (5-15); BUN 31 mg/dL (7-18); BUN/Creat Ratio 11.5 RATIO (10-20); Calcium,Total 8.3 mg/dL (8.5-10.1); Chloride 109 mmol/L (98-107); Creatinine, Serum 2.69 mg/dL (0.70-1.30); EST Glomerular Filtration Rate 25 mL/min (>60); Est Glom Filt Rate - Afr Amer 30 mL/min (>60); Glucose 170 mg/dL (74-106); Potassium 3.4 mmol/L (3.5-5.1); Sodium Level 143 mmol/L (136-145)
[2022-11-17 10:40] VITALS: BP 133/66; PULSE 107; RESP 18; TEMP 36.5
== END | disposition home or self-care (01) ==
LOC: MEDOUTP 08:45
PROVIDERS: PCP Internal Medicine; Referring Provider Internal Medicine Infectious Disease; Visit Provider Internal Medicine Infectious Disease
DX: N41.2 Abscess of prostate (principal); E87.6 Hypokalemia
CPT/HCPCS: 96365; 36592; 80048; J7050; A4216